=== PATIENT | female | born 1950 | race Caucasian/White ===

== ENCOUNTER 2017-09-21 15:54 | Inpatient (IN) | payer OTHER, MEDICAID ==
[~2017-09-21] VITALS: Ht 154.9 cm; Wt 70.9 kg
[2017-09-21 16:00] VITALS: Ht 154.9 cm; Wt 70.9 kg
[2017-09-21 16:51] LABS: BASOPHIL % 0.5 % (0-2); PLATELET COUNT 224 x10^3mcL (130-400); RED CELL DISTRIBUTION WIDTH 13.4 % (11.5-14.5)
[2017-09-21 17:17] LABS: ALBUMIN 3.6 g/dL (3.4-5.0); BILIRUBIN TOTAL 0.58 mg/dL (0.20-1.00); CALCIUM 8.2 mg/dL (8.5-10.1); CARBON DIOXIDE 30.3 mmol/L (21-32); TOTAL PROTEIN, SERUM 7.6 g/dL (6.4-8.2)
[2017-09-21] MEDS ORDERED: LOSARTAN POTAS100 M1 PO (17:33)
[2017-09-21 17:34] LABS: POTASSIUM SERUM 7.1 mmol/L (3.5-5.1)
[2017-09-21] MEDS ORDERED: GABAPENTIN100 M2 PO (17:34)
[2017-09-21] MEDS ORDERED: LIPI10 PO (17:34)
[2017-09-21] MEDS ORDERED: NOR10 PO (17:34)
[2017-09-21] MEDS ORDERED: DIALYVITE1 TAB PO (17:40)
[2017-09-21 18:09] LABS: MAGNESIUM 2.6 mg/dL (1.8-2.4); PHOSPHOROUS 7.1 mg/dL (2.5-4.9)
[2017-09-21 18:14] LABS: CHOLESTEROL/HDL RATIO 2.3; T3 TOTAL 0.73 ng/mL
[2017-09-21 18:17] LABS: FREE T4 0.99 ng/dL (0.76-1.46); T4(THYROXINE) 6.1 ug/dL (4.7-13.3)
[2017-09-21] MEDS ORDERED: LANTUS SOLOS100 U/M1 SC (19:42)
[2017-09-21 20:26] VITALS: BP 167/54
[2017-09-21 21:33] LABS: POTASSIUM SERUM 4.4 mmol/L (3.5-5.1)
[2017-09-21 21:34] LABS: CREATININE SERUM 7.2 mg/dL (0.6-1.0)
[2017-09-21 22:16] LABS: MAGNESIUM 2.5 mg/dL (1.8-2.4); PHOSPHOROUS 5.6 mg/dL (2.5-4.9)
[2017-09-21 23:00] VITALS: BP 134/54
[2017-09-22 00:33] LABS: CALCIUM 8.9 mg/dL (8.5-10.1); POTASSIUM SERUM 3.2 mmol/L (3.5-5.1)
[2017-09-22 00:39] LABS: CREATININE SERUM 4.6 mg/dL (0.6-1.0)
[2017-09-22 03:00] VITALS: BP 141/44
[2017-09-22 05:27] LABS: BASOPHIL % 0.8 % (0-2); PLATELET COUNT 206 x10^3mcL (130-400); RED CELL DISTRIBUTION WIDTH 14.1 % (11.5-14.5)
[2017-09-22 05:38] LABS: CALCIUM 8.5 mg/dL (8.5-10.1); CARBON DIOXIDE 31.9 mmol/L (21-32); MAGNESIUM 2.1 mg/dL (1.8-2.4); PHOSPHOROUS 5.8 mg/dL (2.5-4.9); POTASSIUM SERUM 5.1 mmol/L (3.5-5.1)
[2017-09-22 05:41] LABS: CREATININE SERUM 5.7 mg/dL (0.6-1.0)
[2017-09-22 07:52] VITALS: BP 144/47
[2017-09-22 11:32] VITALS: BP 158/56
[2017-09-22 15:58] VITALS: BP 149/58
[2017-09-22 20:00] VITALS: BP 150/46
[2017-09-22 20:14] LABS: microscopic required? YES; urine erythrocyte 1+ (NEGATIVE)
[2017-09-22 20:23] LABS: AMPHETAMINE QUAL UR NONE DETECTED (NEG <=1000)
[2017-09-23] VITALS (8 sets, daily range): BP systolic 138–173; BP diastolic 37–56
[2017-09-23 05:35] LABS: CALCIUM 8.1 mg/dL (8.5-10.1); CARBON DIOXIDE 28.9 mmol/L (21-32); MAGNESIUM 2.1 mg/dL (1.8-2.4); PHOSPHOROUS 6.6 mg/dL (2.5-4.9); POTASSIUM SERUM 4.8 mmol/L (3.5-5.1)
[2017-09-23 05:37] LABS: BASOPHIL % 0.6 % (0-2); PLATELET COUNT 191 x10^3mcL (130-400); RED CELL DISTRIBUTION WIDTH 13.4 % (11.5-14.5)
[2017-09-23 05:51] LABS: CREATININE SERUM 7.8 mg/dL (0.6-1.0)
[2017-09-24 05:40] VITALS: BP 165/40
[2017-09-24 06:26] LABS: BASOPHIL % 0.5 % (0-2); PLATELET COUNT 187 x10^3mcL (130-400); RED CELL DISTRIBUTION WIDTH 13.4 % (11.5-14.5)
[2017-09-24 06:33] LABS: CALCIUM 8.4 mg/dL (8.5-10.1); CARBON DIOXIDE 31.9 mmol/L (21-32); POTASSIUM SERUM 4.1 mmol/L (3.5-5.1)
[2017-09-24 06:41] LABS: CREATININE SERUM 5.5 mg/dL (0.6-1.0)
[2017-09-24] MEDS ORDERED: ECO81 PO (09:27)
[2017-09-24 09:37] VITALS: BP 154/47
[2017-09-24 10:32] VITALS: BP 154/47
[2017-09-24] MEDS ORDERED: [UNRECOGNIZED DRUG - CODE] PO (10:39)
[2017-09-24] MEDS ORDERED: ATENOLOL50 MG PO (10:39)
== END 2017-09-24 12:25 | disposition home or self-care (01) | DRG 291 ==
LOC: ED 15:54 → IC 17:20 → DU 17:20 → IC 17:22 → EDBEDREQ 17:32 → EDBEDREQSVC 17:32 → IC 17:45 → DU 09-23 12:16
PROVIDERS: Emergency Medicine; Family Medicine
PROC: 5A1D70Z Performance of Urinary Filtration, Intermittent, Less than 6 Hours Per Day (ICD-10-PCS; principal; 2017-09-21)
PROC: 02HV33Z Insertion of Infusion Device into Superior Vena Cava, Percutaneous Approach (ICD-10-PCS; 2017-09-22)
PROC: 5A1D70Z Performance of Urinary Filtration, Intermittent, Less than 6 Hours Per Day (ICD-10-PCS; 2017-09-23)
DX: I13.2 Hypertensive heart and chronic kidney disease with heart failure and with stage 5 chronic kidney disease, or end stage renal disease (principal); N18.6 End stage renal disease; I50.43 Acute on chronic combined systolic (congestive) and diastolic (congestive) heart failure; N17.0 Acute kidney failure with tubular necrosis; E87.1 Hypo-osmolality and hyponatremia; E11.22 Type 2 diabetes mellitus with diabetic chronic kidney disease; Z99.2 Dependence on renal dialysis; E87.5 Hyperkalemia; R00.1 Bradycardia, unspecified; E11.40 Type 2 diabetes mellitus with diabetic neuropathy, unspecified; E11.21 Type 2 diabetes mellitus with diabetic nephropathy; E83.39 Other disorders of phosphorus metabolism; F41.9 Anxiety disorder, unspecified; Z53.29 Procedure and treatment not carried out because of patient's decision for other reasons; E11.42 Type 2 diabetes mellitus with diabetic polyneuropathy; E03.9 Hypothyroidism, unspecified; E83.41 Hypermagnesemia; D64.9 Anemia, unspecified; K21.9 Gastro-esophageal reflux disease without esophagitis; F32.9 Major depressive disorder, single episode, unspecified; E78.5 Hyperlipidemia, unspecified; Z79.4 Long term (current) use of insulin; Z90.49 Acquired absence of other specified parts of digestive tract; Z79.899 Other long term (current) drug therapy
CPT/HCPCS: 36556; 82962; 83880; 84439; J1642; J1815; J2060; J2405; J3480; J3490; J7030; J7040; J7613; Q0092

== ENCOUNTER 2018-01-02 08:08 | Inpatient (IN) | payer OTHER, MEDICAID ==
[~2018-01-02] VITALS: Ht 154.9 cm; Wt 72.6 kg
[~2018-01-02 08:08] MED LIST: ATENOLOL50 MG PO; DIALYVITE1 TAB PO; ECO81 PO; GABAPENTIN100 M2 PO; LANTUS SOLOS100 U/M1 SC; LIPI10 PO; LOSARTAN POTAS100 M1 PO; NOR10 PO; [UNRECOGNIZED DRUG - CODE] PO
[2018-01-02 09:02] LABS: BASOPHIL % 2.7 % (0-2); PLATELET COUNT 281 x10^3mcL (130-400); RED CELL DISTRIBUTION WIDTH 14.2 % (11.5-14.5)
[2018-01-02 09:11] LABS: BILIRUBIN TOTAL 0.5 mg/dL (0.20-1.00); CALCIUM 9.2 mg/dL (8.5-10.1); CARBON DIOXIDE 27.4 mmol/L (21-32); POTASSIUM SERUM 4.5 mmol/L (3.5-5.1)
[2018-01-02 09:15] LABS: ALBUMIN 3.2 g/dL (3.4-5.0); CHOLESTEROL/HDL RATIO 1.7; TOTAL PROTEIN, SERUM 8.3 g/dL (6.4-8.2)
[2018-01-02 09:16] LABS: CREATININE SERUM 6.7 mg/dL (0.6-1.0)
[2018-01-02 09:27] LABS: T3 TOTAL 0.49 ng/mL
[2018-01-02 09:37] LABS: FREE T4 1.46 ng/dL (0.76-1.46); FREE THYROXINE INDEX 3.1 ug/dL (1.4-4.5); T4(THYROXINE) 8.5 ug/dL (4.7-13.3)
[2018-01-02] MEDS ORDERED: OMEPRAZOLE40 M1 PO (11:01)
[2018-01-02] MEDS ORDERED: NAPROSYN500 MG PO (11:01)
[2018-01-02 12:24] VITALS: BP 147/52
[2018-01-02 12:28] LABS: MAGNESIUM 2.3 mg/dL (1.8-2.4); PHOSPHOROUS 3.5 mg/dL (2.5-4.9)
[2018-01-02 17:12] VITALS: BP 132/41
[2018-01-02 18:50] VITALS: Ht 154.9 cm; Wt 72.6 kg
[2018-01-02 20:14] VITALS: BP 149/42
[2018-01-03 05:34] LABS: BASOPHIL % 0.3 % (0-2); PLATELET COUNT 240 x10^3mcL (130-400); RED CELL DISTRIBUTION WIDTH 14.2 % (11.5-14.5)
[2018-01-03 05:39] VITALS: BP 145/46
[2018-01-03 05:44] LABS: CALCIUM 8.9 mg/dL (8.5-10.1); CARBON DIOXIDE 31.9 mmol/L (21-32); POTASSIUM SERUM 3.6 mmol/L (3.5-5.1)
[2018-01-03 09:52] VITALS: BP 166/50
[2018-01-03 13:37] VITALS: BP 137/41
[2018-01-03 17:32] VITALS: BP 138/37
[2018-01-03 20:25] VITALS: BP 145/48
[2018-01-04 05:22] VITALS: BP 143/49
[2018-01-04 09:00] VITALS: BP 143/47
[2018-01-04] MEDS ORDERED: ZITHROMAX500 MG PO (11:26)
[2018-01-04] MEDS ORDERED: AMOXICILLIN500 M1 PO (11:26)
[2018-01-04 12:20] VITALS: BP 130/46
[2018-01-04 13:35] VITALS: BP 130/46
== END 2018-01-04 14:28 | disposition home or self-care (01) | DRG 871 ==
LOC: ED 08:08 → DU 09:44
PROVIDERS: Internal Medicine; Specialist
DX: A41.9 Sepsis, unspecified organism (principal); J15.9 Unspecified bacterial pneumonia; N18.6 End stage renal disease; I31.9 Disease of pericardium, unspecified; E87.1 Hypo-osmolality and hyponatremia; E44.1 Mild protein-calorie malnutrition; I12.0 Hypertensive chronic kidney disease with stage 5 chronic kidney disease or end stage renal disease; E11.42 Type 2 diabetes mellitus with diabetic polyneuropathy; E11.22 Type 2 diabetes mellitus with diabetic chronic kidney disease; D63.1 Anemia in chronic kidney disease; K21.9 Gastro-esophageal reflux disease without esophagitis; M19.90 Unspecified osteoarthritis, unspecified site; E78.5 Hyperlipidemia, unspecified; Z95.0 Presence of cardiac pacemaker; Z79.4 Long term (current) use of insulin; Z68.32 Body mass index [BMI] 32.0-32.9, adult
CPT/HCPCS: 82962; 83880; 84439; J0456; J0696; J0885-EC; J1644; J1815; J7030; J7050; Q0092